=== PATIENT | male | born 1945 | race Two or more races ===

== ENCOUNTER 2020-03-24 15:14 | Emergency (ER) | payer MEDICARE, MEDICAID ==
[~2020-03-24] VITALS: Ht 170.2 cm; Wt 73.1 kg
--- NOTE | 2020-03-24 15:32 | PHYS DOC ---
Past History Past Medical History: Hypertension Past Surgical History: No Surgical History, Appendectomy Alcohol Use: Heavy General Adult EDM: Chief Complaint: ALCOHOL INTOXICATION HPI: HPI: 74-year-old male presents via EMS for alcohol intoxication. 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 He drinks beer every day. She was concerned that he was looking worse than usual. Last drink was reported to be last night. He had urine and feces on him so she called an ambulance. Patient admits that he drinks every day. He has had withdrawal symptoms in the past when he stopped drinking beer. He does not have any specific medical complaints. Denies fever or chills. Review of Systems: Review of Systems: Constitutional: Denies fever or chills. Alcohol intoxication. Eyes: Denies change in visual acuity HENT: Denies nasal congestion or sore throat Respiratory: Denies cough or shortness of breath Cardiovascular: Denies chest pain or edema GI: Denies abdominal pain, nausea, vomiting, bloody stools or diarrhea : Denies dysuria Musculoskeletal: Denies back pain or joint pain Integument: Denies rash Neurologic: Denies headache, focal weakness or sensory changes Endocrine: Denies polyuria or polydipsia Lymphatic: Denies swollen glands Psychiatric: Denies depression or anxiety Heart Score: Risk Factors: Risk Factors: DM, Current or recent (<one month) smoker, HTN, HLP, family history of CAD, obesity. Risk Scores: Score 0 - 3: 2.5% MACE over next 6 weeks - Discharge Home Score 4 - 6: 20.3% MACE over next 6 weeks - Admit for Clinical Observation Score 7 - 10: 72.7% MACE over next 6 weeks - Early Invasive Strategies Physical Exam: PE: Constitutional: Well developed, well nourished, no acute distress, non-toxic appearance. [] HENT: Normocephalic, atraumatic, bilateral external ears normal, oropharynx moist, no oral exudates, nose normal. [] Eyes: PERRLA, EOMI, conjunctiva normal, no discharge. [] Neck: Normal range of motion, no tenderness, supple, no stridor. [] Cardiovascular:Heart rate regular rhythm, no murmur [] Lungs & Thorax: Bilateral breath sounds clear to auscultation [] Abdomen: Bowel sounds normal, soft, no tenderness, no masses, no pulsatile masses. [] Skin: Warm, dry, no erythema, no rash. [] Back: No tenderness, no CVA tenderness. [] Extremities: No tenderness, no cyanosis, no clubbing, ROM intact, no edema. [] Neurologic: Alert and oriented X 3, normal motor function, normal sensory function, no focal deficits noted. [] Psychologic: Affect normal, judgement normal, mood normal. [] Current Patient Data: Vital Signs: Vital Signs Date Time Temp Pulse Resp B/P (MAP) Pulse Ox O2 Delivery O2 Flow Rate FiO2 03/24/20 15:17 97.9 105 16 171/110 (130) 95 Room Air EKG: EKG: Sinus rhythm, rate 97, normal axis, no ST elevations or depressions, prolonged DE interval of 208. [] Radiology/Procedures: Radiology/Procedures: [] Impressions: CHEST AP ONLY History: Reason: SOB / Spl. Instructions: / History: Comparison: None. Findings: Patchy bibasilar opacities. No pleural effusion. No pneumothorax. Bilateral glenohumeral DJD. Impression: 1. Patchy bibasilar opacities, may represent atelectasis or developing consolidations. Recommend follow-up. Electronically signed by: Dorys Barry DO (03/24/2020 3:41 PM) [facility] DICTATED AND SIGNED BY: DORYS BARRY DO DATE: 03/24/20 1541 CC: VANDANA ROACH DO; PCP,NO ~ Course & Med Decision Making: Course & Med Decision Making Pertinent Labs and Imaging studies reviewed. (See chart for details) I have ordered a banana bag of normal saline for the patient. His EKG is unremarkable. The patient's labs are unremarkable. He has a slightly low white count and low platelets. His drug screen is positive for alcohol with a level of 227. The patient is alert, aware of his surroundings, and able to make decisions. His chest x-ray shows patchy opacities that are likely atelectasis. I do not see any other evidence of pneumonia. Patient does not have a cough. I have no reason to admit the patient to the hospital. He is stable for discharge at this time. [] Dragon Disclaimer: Dragon Disclaimer: This electronic medical record was generated, in whole or in part, using a voice recognition dictation system. Departure Departure: Impression: Primary Impression: Alcohol intoxication Qualified Codes: F10.920 - Alcohol use, unspecified with intoxication, uncomplicated Disposition: 01 HOME/RESIDENCE PRIOR TO ADM Condition: STABLE Referrals: PCP,NO (PCP) Patient Instructions: Alcohol Intoxication, [id number], Alcohol Problems Justification of Admission: Justification of Admission: Justification of Admission Dx: N/A VANDANA ROACH DO Mar 24, 2020 15:32
[2020-03-24 15:40] LABS: BASO # 0.1 x10^3/uL (0.0-0.2); BASO % 2 % (0-3); EOS % 1 % (0-3); HEMATOCRIT 43.3 % (39.0-53.0); LYMPH # 2.3 x10^3/uL (1.0-4.8); LYMPH % 60 % (24-48); MEAN CORPUSCULAR HEMOGLOBIN 34 pg (25-35); MEAN CORPUSCULAR HGB CONC 35 g/dL (31-37); MEAN CORPUSCULAR VOLUME 98 fL (79-100); MONO # 0.3 x10^3/uL (0.0-1.1); MONO % 7 % (0-9); NEUT # 1.2 x10^3uL (1.8-7.7); NEUT % 30 % (31-73); PLATELET COUNT 102 x10^3/uL (140-400); RED CELL DISTRIBUTION WIDTH 14.4 % (11.5-14.5); WHITE BLOOD COUNT 3.9 x10^3/uL (4.0-11.0)
--- NOTE | 2020-03-24 15:44 | RAD ---
CHEST AP ONLY History: Reason: SOB / Spl. Instructions: / History: Comparison: None. Findings: Patchy bibasilar opacities. No pleural effusion. No pneumothorax. Bilateral glenohumeral DJD. Impression: 1. Patchy bibasilar opacities, may represent atelectasis or developing consolidations. Recommend follow-up. Electronically signed by: Artis Carl DO (03/24/2020 3:41 PM) [facility]
[2020-03-24 15:49] LABS: CALCIUM 8.5 mg/dL (8.5-10.1); CREATININE 0.9 mg/dL (0.7-1.3); GFR 82.9; POTASSIUM 3.9 mmol/L (3.5-5.1)
[2020-03-24 15:54] LABS: ALBUMIN 3.8 g/dL (3.4-5.0); TOTAL BILIRUBIN 0.8 mg/dL (0.2-1.0); TOTAL PROTEIN 7.8 g/dL (6.4-8.2)
[2020-03-24 16:03] LABS: BARBITURATES NEG (NEG); BENZODIAZEPINES NEG (NEG); CANNABINOIDS NEG (NEG); COCAINE NEG (NEG); METHADONE NEG (NEG); OPIATES NEG (NEG); PHENCYCLIDINE NEG (NEG)
[2020-03-24 16:06] LABS: BILIRUBIN,URINE NEG (NEG); CLARITY,URINE CLEAR; COLOR,URINE YELLOW; GLUCOSE,URINE NEG (NEG)
[2020-03-24 16:07] LABS: NITRITE,URINE NEG (NEG)
[2020-03-24 16:08] LABS: BACTERIA,URINE 0 /HPF (0-FEW); RBC,URINE OCC /HPF (0-2); WBC,URINE RARE /HPF (0-4)
[2020-03-24 16:09] LABS: AMPHETAMINE/METHAMPHETAMINE NEG (NEG)
[2020-03-24] MEDS: MVI, ADULT NO.4 WITH VIT K 10 ML, FOLIC ACID INJ 1 MG, THIAMINE INJ 100 MG in IV NORMAL... IV ONE ×4 (16:13)
[2020-03-24 16:24] LABS: % BANDS 2 % (0-9); % LYMPHS 33 % (24-48); % MONOS 13 % (0-10); % SEGS 39 % (35-66)
[2020-03-24 16:25] LABS: % ATYL 10 % (0-0); % BASOS 3 % (0-3)
[2020-03-24 16:28] LABS: PLT ESTIMATE DECREASED (ADEQUATE)
--- NOTE | 2020-03-24 17:22 | EKG ---
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
[2020-03-24 18:10] VITALS: BP 158/99
== END 2020-03-24 18:18 | disposition home or self-care (01) ==
LOC: ER 15:14
DX: F10.229 Alcohol dependence with intoxication, unspecified (principal); I10 Essential (primary) hypertension; Y90.7 Blood alcohol level of 200-239 mg/100 ml
CPT/HCPCS: 36415; 71045; 80053; 80307; 81001; 83690; 84484; 85007; 85025; 93005; 96365; 96366; 99285; G0480; J7030